=== PATIENT | male | born 1935 | race Caucasian/White ===

== ENCOUNTER 2017-01-03 16:02 | Inpatient (IN) | payer OTHER, MEDICAID ==
[~2017-01-03] VITALS: Ht 182.9 cm; Wt 67.1 kg
[2017-01-03] MEDS: FLUCONAZOLE 100 mg/ NS 50 ML IV SCH (02:00)
--- NOTE | 2017-01-03 16:02 | NUR ---
Patient to ER bed 4 to gown for evaluation. Side rails up. Report given to WAYNE BARFIELD.
--- NOTE | 2017-01-03 16:05 | NUR ---
Pt brought in BLS transport in stable condition. Pt sent here by Dr. Salomon from [facility]. Pt here for +N/V/D x3 days. Pt is currently on Levaquin IV from facility for elevated WBC. Pt present hot skin and fever. Pt present w/ productive cough and was placed on nasal canula @ 2L in route. Placed pt on quality assurance monitor. No acute distress noted at this time. Will initate sepsis protocol, Dr. Edouard is aware.
[2017-01-03 16:07] VITALS: BP 100/50; PULSE 146; RESP 20; TEMP 101.1; O2SAT 98
--- NOTE | 2017-01-03 16:30 | NUR ---
ER at bedside examining patient.
[2017-01-03] MEDS ORDERED: ACETAMINOPHEN 325 MG SUPP.RECT RC ONE (16:45)
[2017-01-03] MEDS ORDERED: ACETAMINOPHEN 650 MG SUPP.RECT RC ONE (16:45)
[2017-01-03] MEDS ORDERED: NS 1000 ML BAG IV ONE (16:45)
[2017-01-03 16:58] LABS: BLOOD GAS PH 7.436 (7.350-7.450)
[2017-01-03 16:59] LABS: BLOOD GAS BASE EXCESS -3.7 mmol/L (-3.0-3.0); BLOOD GAS COHb% 0.6 % (0.5-1.5); BLOOD GAS HHB 5.7 % (0.0-6.0); BLOOD O2Hb% 93.3 % (94.0-97.0)
[2017-01-03 17:05] LABS: BASOPHILS % (AUTO) 0.2 % (0.0-2.0); EOSINOPHILS % (AUTO) 0.1 % (0.0-4.0); HEMATOCRIT 31.8 % (36-54); HEMOGLOBIN 10.7 g/dL (14.0-18.0); LYMPHOCYTES # (AUTO) 0.3 K/uL (1.0-5.5); LYMPHOCYTES % (AUTO) 1.6 % (20.5-51.5); MEAN CORPUSCULAR HEMOGLOBIN 30 pg (27-31); MEAN CORPUSCULAR HGB CONC 34 % (32-36); MEAN CORPUSCULAR VOLUME 88 fL (79.0-98.0); MONOCYTES % (AUTO) 6.2 % (1.7-9.3); NEUTROPHILS # (AUTO) 15.5 K/uL (1.8-7.7); NEUTROPHILS % (AUTO) 91.9 % (40.0-70.0); PLATELET COUNT (AUTO) 379 K/uL (130-430); RED BLOOD CELL COUNT(AUTO) 3.63 MIL/uL (4.2-6.2); RED CELL DISTRIBUTION WIDTH 14.7 % (9.0-15.0); WHITE BLOOD COUNT (AUTO) 16.8 K/uL (4.8-10.8)
[2017-01-03 17:18] LABS: PROTHROMBIN TIME 10.8 SECS (9.5-12.5)
[2017-01-03 17:19] LABS: ANION GAP 8 (5-15); CALCIUM 9.1 mg/dL (8.4-11.0); CHLORIDE 106 mmol/L (98-107); CREATININE 1.41 mg/dL (0.55-1.30); GLUCOSE 174 mg/dL (70-99); POTASSIUM 4.5 mmol/L (3.5-5.1); SODIUM SERUM 140 mmol/L (136-145); UREA NITROGEN, BLOOD 29 mg/dL (8-21)
[2017-01-03 17:21] LABS: BILIRUBIN,URINE NEGATIVE (NEGATIVE); BLOOD, URINE 3+ (NEGATIVE); CLARITY/URINE CLOUDY (CLEAR); COLOR,URINE YELLOW (YELLOW); GLUCOSE,URINE NEGATIVE (NEGATIVE); KETONES,URINE NEGATIVE (NEGATIVE); LEUKOCYTE ESTERASE ,URINE 3+ (NEGATIVE); NITRITE, URINE NEGATIVE (NEGATIVE); PH,URINE 5.5 (5.0-8.0); PROTEIN URINE 2+ (NEGATIVE); UROBILINOGEN,URINE 0.2 (0.2-1.0)
[2017-01-03] MEDS ORDERED: LEVOFLOXACIN 500 MG/D5W 100 ML IV ONE (17:30)
[2017-01-03] MEDS ORDERED: PIPERACILLIN/TAZO 3.375 GM in NS 50 ML IV ONE (17:30)
[2017-01-03 17:35] LABS: ALANINE AMINOTRANSFERASE 26 U/L (12-78); ALBUMIN 2.7 g/dL (3.4-4.8); ASPARTATE AMINOTRANSFERASE 28 U/L (10-37); FREE T4 (FREE THYROXINE) 1.1 ng/dL (0.6-1.6); THYROID STIMULATING HORMONE 0.62 uIu/mL (0.34-4.82); TOTAL BILIRUBIN 0.4 mg/dL (0.0-1.0)
[2017-01-03 17:42] LABS: BACTERIA,URINE MODERATE /HPF (None Seen); WBC,URINE >100 /HPF (0-3)
[2017-01-03 17:43] LABS: MUCUS,URINE None Seen /LPF (None Seen); YEAST,URINE Moderate /HPF (None Seen)
[2017-01-03 18:03] LABS: ERYTHROCYTE SEDIMENTATION RATE 90 MM/HR (0-15)
[2017-01-03] MEDS ORDERED: PIPERACILLIN/TAZOBACTAM 3.375 GM/VIAL (ZOSYN) IV ONE (18:04)
[2017-01-03 18:05] LABS: C-REACTIVE PROTEIN QUANT 26.5 mg/dL (0-0.5)
[2017-01-03] MEDS ORDERED: TAMS-11 PO (18:20)
[2017-01-03] MEDS ORDERED: QUIN40TA PO (18:20)
[2017-01-03] MEDS ORDERED: LIP20 PO (18:20)
[2017-01-03] MEDS ORDERED: METF1000 PO (18:20)
[2017-01-03] MEDS ORDERED: ASPI81TA2 PO (18:20)
[2017-01-03] MEDS ORDERED: INSU100V9 SUBCUT (18:20)
[2017-01-03] MEDS ORDERED: DONE10TA44 PO (18:20)
[2017-01-03] MEDS ORDERED: MEMA10TA12 PO (18:20)
--- NOTE | 2017-01-03 19:20 | NUR ---
Patient will be admitted to care of [facility]. Admitted to Tele unit. Will go to room 118-A. Belongings list completed. Summary report printed. Report given to WAYNE Cody.
--- NOTE | 2017-01-03 19:36 | NUR ---
ADMISSION: The patient, JOSE ROBERTO LOZANO, 81 y/o, M admitted by ALEJANDRO VALDEZ DO, was given written information regarding hospital policies, unit procedures and contact persons. Valuables were checked and pt was oriented to his room and surrounding. Pt was informed he is in Room 118-a and his RN will be Jonna.
[2017-01-03 19:38] VITALS: BP 113/69; PULSE 108; RESP 19; TEMP 99.5; O2SAT 95
[2017-01-03 20:00] VITALS: BP 113/69; PULSE 108; RESP 18; TEMP 99.5
--- NOTE | 2017-01-03 20:00 | NUR ---
2000 BEGINNING RETORT FURNACE OPERATOR NOTE Patient is in bed resting. He appears somewhat scared, confused and disoriented. The nurse oriented him to the room and the surroundings, but he still seemed very confused. He was non-verbal at the time, no response to any questions the nurse asked. He had a very small BM, no diarrhea. The nurse started prescribed IVF. No pain or distress noted.
[2017-01-03] MEDS ORDERED: FLU VACC QS 2016-17(36MOS+)/PF 0.5 ML/SYR SYRINGE I.M. PRN (20:15)
[2017-01-03] MEDS ORDERED: MAGNESIUM SULFATE 50 ML IV PRN (20:45)
[2017-01-03] MEDS ORDERED: DOCUSATE SODIUM 100 MG CAPSULE PO PRN (20:45)
[2017-01-03] MEDS ORDERED: POTASSIUM CHLORIDE 10 MEQ TAB.PRT.SR PO PRN (20:45)
[2017-01-03] MEDS ORDERED: ACETAMINOPHEN 325 MG TABLET PO PRN (20:45)
[2017-01-03] MEDS ORDERED: MORPHINE 2 MG/ML INJ. SYRINGE IVP PRN (20:45)
[2017-01-03] MEDS ORDERED: LORazepam 2 MG/ML VIAL IVP PRN (20:45)
[2017-01-03] MEDS ORDERED: DEXTROSE 50% JECT 50 ML DISP.SYRIN IVP PRN (20:45)
[2017-01-03] MEDS ORDERED: ONDANSETRON HCL 4 MG/2 ML VIAL IVP PRN (20:45)
[2017-01-03] MEDS: NACL 0.9% 1,000 ML IV SCH (21:00)
--- NOTE | 2017-01-03 22:00 | NUR ---
2200 ROUNDS Patient in bed napping. The nurse and the DRUG ABUSE WORKER cleaned him. The nurse noted that the patient developed somewhat wet productive cough and on several occasions he expelled thick yellow-greenish secretions. Previously on assessment the nurse found some expiratory wheezes in his upper left lobe. The nurse also noted that the patient has real difficulties swallowing his medications. The nurse will convey that to the day shift, so that the patient can receive swallow evaluation. No S/S of distress noted.Fall precautions in place.
[2017-01-03] MEDS: INSULIN ASPART 100 UNITS/ML, 10 ML VIAL (NovoLOG) SUBCUT PRN (22:51)
[2017-01-03] MEDS: HEPARIN SODIUM,PORCINE 5000 UNITS/ML VIAL SUBCUT SCH (22:51)
[2017-01-03] MEDS: ATORVASTATIN 20 MG TABLET PO SCH (22:55)
[2017-01-03] MEDS: LACTOBACILLUS RHAMNOSUS GG 1 CAP CAPSULE PO SCH (22:55)
[2017-01-03] MEDS: MEMANTINE HCL 5 MG TABLET PO SCH (22:56)
[2017-01-03] MEDS: DONEPEZIL HCL 5 MG TABLET (ARICEPT) PO SCH (22:56)
--- NOTE | 2017-01-04 00:10 | NUR ---
0010 NOTE Patient in bed sleeping.No S/S of pain or distress noted. Fall precautions in place.
[2017-01-04] MEDS ORDERED: FLUCONAZOLE 200 mg/ NS 100 ML IV ONE (01:54)
--- NOTE | 2017-01-04 02:30 | NUR ---
0230 ROUNDS Patient in bed sleeping. No pain or any distress noted. Fall precautions in place.
[2017-01-04 03:47] VITALS: BP 115/70; PULSE 111; RESP 18; TEMP 98.9
--- NOTE | 2017-01-04 05:23 | NUR ---
0500 NOTE Patient in bed sleeping. No pain, cough or distress noted. Fall precautions in place.
[2017-01-04 06:37] LABS: BASOPHILS % (AUTO) 0.1 % (0.0-2.0); EOSINOPHILS % (AUTO) 0.1 % (0.0-4.0); HEMATOCRIT 25.1 % (36-54); HEMOGLOBIN 8.2 g/dL (14.0-18.0); LYMPHOCYTES # (AUTO) 0.7 K/uL (1.0-5.5); LYMPHOCYTES % (AUTO) 6.5 % (20.5-51.5); MEAN CORPUSCULAR HEMOGLOBIN 29 pg (27-31); MEAN CORPUSCULAR HGB CONC 33 % (32-36); MEAN CORPUSCULAR VOLUME 89 fL (79.0-98.0); MONOCYTES % (AUTO) 9.1 % (1.7-9.3); NEUTROPHILS # (AUTO) 9.6 K/uL (1.8-7.7); NEUTROPHILS % (AUTO) 84.2 % (40.0-70.0); PLATELET COUNT (AUTO) 283 K/uL (130-430); RED BLOOD CELL COUNT(AUTO) 2.81 MIL/uL (4.2-6.2); RED CELL DISTRIBUTION WIDTH 14.7 % (9.0-15.0); WHITE BLOOD COUNT (AUTO) 11.3 K/uL (4.8-10.8)
[2017-01-04 06:58] LABS: ANION GAP 8 (5-15); CALCIUM 7.7 mg/dL (8.4-11.0); CHLORIDE 113 mmol/L (98-107); CREATININE 1.06 mg/dL (0.55-1.30); GLUCOSE 140 mg/dL (70-99); POTASSIUM 3.8 mmol/L (3.5-5.1); SODIUM SERUM 144 mmol/L (136-145); UREA NITROGEN, BLOOD 30 mg/dL (8-21)
--- NOTE | 2017-01-04 07:30 | NUR ---
AM ROUNDS RECEIVED PT UP IN BED. AWAKE, ALERT, ORIENTED TO NAME ONLY. BREATHING IS EVEN AND UNLABORED ON RA. F/C IS DRAINING CHASE CLOUDY URINE TO GRAVITY. FULL ASSESSMENT COMPLETED. VSS. RD OF CALL LIGHT NOTED. ENCOURAGED PT TO CALL ME WITH ANY NEEDS
--- NOTE | 2017-01-04 07:30 | NUR ---
AM ROUNDS RECEIVED PT UP IN BED. AWAKE, ALERT, ORIENTED X 2. BREATHING IS EVEN AND UNLABORED ON RA. NO ACUTE DISTRESS. FULL ASSESSMENT COMPLETED. VSS. POC DISCUSSED. PT VERBALIZED UNDERSTANDING. RD OF CALL LIGHT NOTED. ENCOURAGED PT TO CALL ME WITH ANY NEEDS.
--- NOTE | 2017-01-04 07:42 | NUR ---
CLOSING NOTE Patient in bed sleeping. Breathing regular, no S/S of pain or any distress noted. IVF running, fall precautions in place. Patient's needs met throughout the shift. Report given to the day shift nurse about the possible dysphagia observed by the shift engineer nurse as well as a suggestion to crush the medications and give them in apple sauce to avoid possible choking. The nurse also informed the day shift nurse to let the primary MD know about signing the DNR papers in front of the chart.
--- NOTE | 2017-01-04 08:31 | NUR ---
Nutrition Note Dylan scale of 11 noted. Pt admitted with UTI. Diet: CCHO-60 gm, Pureed BMI: 23.2 kg/m2 RD to follow up per nutrition care standards.
[2017-01-04] MEDS: MEMANTINE HCL 5 MG TABLET PO SCH ×2 (09:23→20:19)
[2017-01-04] MEDS: LACTOBACILLUS RHAMNOSUS GG 1 CAP CAPSULE PO SCH ×2 (09:23→20:25)
[2017-01-04] MEDS: LISINOPRIL 20 MG TABLET PO SCH (09:24)
[2017-01-04] MEDS: ASPIRIN 81 MG TAB.CHEW PO SCH (09:24)
[2017-01-04] MEDS: TAMSULOSIN HCL 0.4 MG CAP PO SCH (09:24)
[2017-01-04] MEDS: HEPARIN SODIUM,PORCINE 5000 UNITS/ML VIAL SUBCUT SCH ×2 (09:26→20:21)
--- NOTE | 2017-01-04 09:30 | NUR ---
RN ROUNDS ADMIN AM MEDS, CRUSHED IN APPLE SAUCE. PT DOM WELL. BREAKFAST TRAY REMOVED. COMFORT MEASURES PROVIDED. CALL LIGHT PLACED WITHIN PTS REACH.
[2017-01-04] MEDS: NACL 0.9% 1,000 ML IV SCH ×2 (10:30→22:31)
[2017-01-04 11:07] VITALS: Ht 182.9 cm; Wt 67.1 kg
[2017-01-04 11:54] VITALS: BP 111/53; PULSE 95; RESP 16; TEMP 98.2; O2SAT 97
--- NOTE | 2017-01-04 12:00 | NUR ---
RN ROUNDS SON AT BEDSIDE. POC DISCUSSED. EDUCATED PT AND SON ON UTI, IVATB, AND IMPROTANCE OF HYDRATION. PT ADMITS NOT DRINKING WATER. SON VERBALIZED UNDERSTANDING
--- NOTE | 2017-01-04 15:00 | NUR ---
RN ROUNDS PT RESTING IN BED. EYES CLOSED. CHEST RISING AND FALLING. NO NONVERBAL INDICATION OF PAIN NOTED. CALL LIGHT IS WITHIN REACH.
[2017-01-04 17:15] VITALS: BP 120/66; PULSE 87; RESP 16; TEMP 98.8; O2SAT 96
[2017-01-04] MEDS: LEVOFLOXACIN 500 MG/D5W 100 ML IV SCH (18:13)
--- NOTE | 2017-01-04 18:22 | NUR ---
CLOSING NOTE PT RESTING IN BED. ALL NEEDS MET. HOURLY ROUNDS OBSERVED THROUGHOUT SHIFT. WILL ENDORSE REPORT TO NOC SHIFT NURSE.
[2017-01-04] MEDS: DONEPEZIL HCL 5 MG TABLET (ARICEPT) PO SCH (20:18)
[2017-01-04] MEDS: ATORVASTATIN 20 MG TABLET PO SCH (20:19)
[2017-01-04] MEDS: MUPIROCIN 2% TOPICAL OINTMENT 22 GM TP SCH (20:19)
[2017-01-04] MEDS: INSULIN ASPART 100 UNITS/ML, 10 ML VIAL (NovoLOG) SUBCUT PRN (20:24)
--- NOTE | 2017-01-04 20:34 | NUR ---
NOTES; SCHEDULED PO MEDICATION CRUSHED AND ADMINISTERED WITH APPLE SAUCE. PT TOLERATED MEDS WELL. BLOOD SUGAR FOUND TO BE 203. INSULIN ADMINISTERED SUBCUTANEOUSLY PER SLIDING SCALE ORDER.
[2017-01-04] MEDS: FLUCONAZOLE 100 mg/ NS 50 ML IV SCH (22:08)
--- NOTE | 2017-01-04 22:30 | NUR ---
NOTES; REPOSITIONED FOR COMFORT. DENIES ANY PAIN AT THIS TIME. SAFETY MEASURES IN PROGRESS.
[2017-01-04 23:52] VITALS: BP 136/70; PULSE 70; RESP 20; TEMP 98.5; O2SAT 94
--- NOTE | 2017-01-05 | NUR ---
NOTES; APPEARED TO BE SLEEPING, EYES CLOSED, REPOSITIONED FOR COMFORT. EASILY AROUSED.
--- NOTE | 2017-01-05 01:45 | NUR ---
NOTES; APPEARED TO BE SLEEPING, EYES CLOSED. RESPIRATION EVEN AND UNLABORED. NO ACUTE DISTRESS NOTED. SAFETY MEASURES IN PROGRESS.
--- NOTE | 2017-01-05 04:00 | NUR ---
NOTES; APPEARED TO BE SLEEPING, EYES CLOSED. RESPIRATION EVEN AND UNLABORED. NO ACUTE DISTRESS NOTED. SAFETY MEASURES IN PROGRESS.
[2017-01-05 04:13] VITALS: BP 135/76; PULSE 93; RESP 20; TEMP 98.4; O2SAT 99
--- NOTE | 2017-01-05 05:46 | NUR ---
NOTES; BLOOD SUGAR FOUND TO BE 118. NO INSULIN NEEDED PER SLIDING SCALE ORDER. DENIES ANY PAIN AT THIS TIME. SAFETY MEASURES IN PROGRESS.
[2017-01-05 06:35] LABS: ANION GAP 5 (5-15); CALCIUM 8.1 mg/dL (8.4-11.0); CHLORIDE 113 mmol/L (98-107); GLUCOSE 127 mg/dL (70-99); POTASSIUM 3.7 mmol/L (3.5-5.1); SODIUM SERUM 144 mmol/L (136-145); UREA NITROGEN, BLOOD 26 mg/dL (8-21)
--- NOTE | 2017-01-05 06:35 | NUR ---
NOTES; RESTING QUIETLY, EASILY AROUSED; NO ACUTE DISTRESS NOTED. VITAL SIGNS STABLE, AFEBRILE. DENIES ANY PAIN AT THIS TIME. ALL NEEDS ATTENDED. SAFETY MEASURES MAINTAINED.
[2017-01-05 06:54] LABS: BASOPHILS % (AUTO) 0.3 % (0.0-2.0); EOSINOPHILS # (AUTO) 0.1 K/uL (0.0-0.4); EOSINOPHILS % (AUTO) 1.3 % (0.0-4.0); HEMATOCRIT 23.2 % (36-54); HEMOGLOBIN 7.5 g/dL (14.0-18.0); LYMPHOCYTES # (AUTO) 1.1 K/uL (1.0-5.5); MEAN CORPUSCULAR HEMOGLOBIN 28 pg (27-31); MEAN CORPUSCULAR HGB CONC 32 % (32-36); MEAN CORPUSCULAR VOLUME 88 fL (79.0-98.0); MONOCYTES # (AUTO) 0.9 K/uL (0.0-1.0); NEUTROPHILS # (AUTO) 8.1 K/uL (1.8-7.7); NEUTROPHILS % (AUTO) 78.4 % (40.0-70.0); PLATELET COUNT (AUTO) 303 K/uL (130-430); RED BLOOD CELL COUNT(AUTO) 2.64 MIL/uL (4.2-6.2); RED CELL DISTRIBUTION WIDTH 15.1 % (9.0-15.0); WHITE BLOOD COUNT (AUTO) 10.3 K/uL (4.8-10.8)
[2017-01-05 07:59] VITALS: BP 142/64; PULSE 69; RESP 18; TEMP 98.1; O2SAT 98
--- NOTE | 2017-01-05 08:00 | NUR ---
NOTE PT SITTING UP IN BED AND ASSISTED WITH HIS BREAKFAST TRAY BY NURSING STUDENTS AT THIS TIME. NO SOB/RESP DISTRESS OR PAIN/DISCOMFORT NOTED AT THIS TIME. MERRITT CATHETER INTACT AND DRAINING WELL. TELE UNIT INTACT AND ATTACHED AT THIS TIME. CALL LIGHT WITHIN REACH.
[2017-01-05] MEDS: LACTOBACILLUS RHAMNOSUS GG 1 CAP CAPSULE PO SCH ×2 (08:40→20:31)
[2017-01-05] MEDS: TAMSULOSIN HCL 0.4 MG CAP PO SCH (08:40)
[2017-01-05] MEDS: MEMANTINE HCL 5 MG TABLET PO SCH ×2 (08:40→20:31)
[2017-01-05] MEDS: ASPIRIN 81 MG TAB.CHEW PO SCH (08:40)
[2017-01-05] MEDS: LISINOPRIL 20 MG TABLET PO SCH (08:41)
[2017-01-05] MEDS: HEPARIN SODIUM,PORCINE 5000 UNITS/ML VIAL SUBCUT SCH ×2 (08:44→20:35)
[2017-01-05] MEDS: MUPIROCIN 2% TOPICAL OINTMENT 22 GM TP SCH ×2 (08:52→20:40)
[2017-01-05] MEDS: INSULIN ASPART 100 UNITS/ML, 10 ML VIAL (NovoLOG) SUBCUT PRN ×2 (11:01→16:13)
--- NOTE | 2017-01-05 12:00 | NUR ---
NOTE PT CALM IN BED AND DENIES ANY NEEDS AT THIS TIME. LUNCH TRAY WILL BE IN SHORTLY AND ASSISTANCE WILL BE GIVEN TO PT TO EAT HIS MEAL AT THIS TIME. CALL LIGHT WITHIN REACH.
[2017-01-05 12:28] VITALS: BP 152/73; PULSE 64; RESP 16; TEMP 98.4; O2SAT 100
--- NOTE | 2017-01-05 12:36 | NUR ---
Discharge Planning Called and left a message with patient's son Hoang Christine [phone], asking him to return my call. Call made to son in order to complete DC plan assessment. Patient has Alzheimer's and resides at [facility].
--- NOTE | 2017-01-05 15:00 | NUR ---
NOTE PT RESTING IN BED AT THIS TIME. NO NEEDS NOTED. PT MAINTAINED WITH SAFETY PRECAUTIONS ALL SHIFT. IVF'S INFUSING WELL THROUGH RIGHT HAND IV SITE. NO SOB/RESP DISTRESS OR PAIN/DISCOMFORT NOTED. PT CHECKED ON Q1' AND PRN ALL SHIFT. PT MAINTAINED WITH SAFETY PRECAUTIONS ALL SHIFT. MERRITT CATHETER INTACT AND DRAINING WELL. NO NEEDS NOTED. CALL LIGHT WITHIN REACH.
[2017-01-05] MEDS: NACL 0.9% 1,000 ML IV SCH ×2 (16:29→22:06)
[2017-01-05 17:08] VITALS: BP 148/48; PULSE 74; RESP 16; TEMP 98.1; O2SAT 99
[2017-01-05] MEDS: LEVOFLOXACIN 500 MG/D5W 100 ML IV SCH (17:44)
--- NOTE | 2017-01-05 18:30 | NUR ---
NOTE PT SITTING UP IN BED EATING HIS DINNER. NO NEEDS NOTED. CALL LIGHT WITHIN REACH. PT MAINTAINED WITH SAFETY PRECAUTIONS ALL SHIFT. CALL LIGHT WITHIN REACH.
[2017-01-05 19:30] VITALS: BP 146/68; PULSE 70; RESP 18; TEMP 97.3; O2SAT 100
--- NOTE | 2017-01-05 19:30 | NUR ---
notes received the pt from the day nurse.pt awake but confused to time and place reoriented to time and place.iv intact to rt forearm and lt hand,no redness or swelling noted.monitor in place and shows SR.bed alarm is on.side rails are up pt in isolation for mrsa of the nares.pt denies pain .watching tv .call light within reach safety measures in progress.continue to monitor.
[2017-01-05] MEDS: ATORVASTATIN 20 MG TABLET PO SCH (20:31)
[2017-01-05] MEDS: DONEPEZIL HCL 5 MG TABLET (ARICEPT) PO SCH (20:31)
[2017-01-05] MEDS: ZOLPIDEM TARTRATE 5 MG TABLET PO PRN (20:32)
--- NOTE | 2017-01-05 21:26 | NUR ---
notes pt watching tv with no complaints accucheck was 147,no insulin needed per s/s.call light within reach .continue to monitor.
[2017-01-05] MEDS: FLUCONAZOLE 100 mg/ NS 50 ML IV SCH (22:02)
--- NOTE | 2017-01-05 23:29 | NUR ---
notes pt sleeping,call light within reach.continue to monitor.
[2017-01-06] VITALS (7 sets, daily range): BP systolic 119–159; BP diastolic 62–80; PULSE 66–82; RESP 16–19; TEMP 97.8–99; O2SAT 98–100
--- NOTE | 2017-01-06 01:28 | NUR ---
notes pt sleeping,bed alarm is on will continue to monitor.
--- NOTE | 2017-01-06 03:38 | NUR ---
notes pt remains asleep,continue to monitor.
--- NOTE | 2017-01-06 06:22 | NUR ---
closing notes pt resting with eyes closed,awaken for accucheck that was 145,no insulin needed per s/s.will endorse the care of the pt to the day nurse.
[2017-01-06 07:14] LABS: BASOPHILS % (AUTO) 0.6 % (0.0-2.0); EOSINOPHILS # (AUTO) 0.2 K/uL (0.0-0.4); EOSINOPHILS % (AUTO) 2.6 % (0.0-4.0); HEMATOCRIT 24.5 % (36-54); HEMOGLOBIN 7.9 g/dL (14.0-18.0); LYMPHOCYTES # (AUTO) 1.1 K/uL (1.0-5.5); LYMPHOCYTES % (AUTO) 14.4 % (20.5-51.5); MEAN CORPUSCULAR HEMOGLOBIN 29 pg (27-31); MEAN CORPUSCULAR HGB CONC 32 % (32-36); MEAN CORPUSCULAR VOLUME 89 fL (79.0-98.0); MONOCYTES # (AUTO) 0.5 K/uL (0.0-1.0); MONOCYTES % (AUTO) 6.1 % (1.7-9.3); NEUTROPHILS # (AUTO) 5.9 K/uL (1.8-7.7); NEUTROPHILS % (AUTO) 76.3 % (40.0-70.0); PLATELET COUNT (AUTO) 299 K/uL (130-430); RED BLOOD CELL COUNT(AUTO) 2.76 MIL/uL (4.2-6.2); RED CELL DISTRIBUTION WIDTH 14.7 % (9.0-15.0); WHITE BLOOD COUNT (AUTO) 7.7 K/uL (4.8-10.8)
[2017-01-06 07:40] LABS: ANION GAP 7 (5-15); CALCIUM 8.1 mg/dL (8.4-11.0); CHLORIDE 111 mmol/L (98-107); CREATININE 0.86 mg/dL (0.55-1.30); GLUCOSE 155 mg/dL (70-99); POTASSIUM 3.6 mmol/L (3.5-5.1); SODIUM SERUM 142 mmol/L (136-145); UREA NITROGEN, BLOOD 18 mg/dL (8-21)
--- NOTE | 2017-01-06 08:00 | NUR ---
AM NOTES: RECEIVED PT AWAKE, ALERT, ORIENTED TO HIMSELF, FOLLOWS COMMANDS, NS 90 ML/HR RUNNING VIA LT HAND, ON NSR, NO RESP DISTRESS NOTED, TO CONTINUE TO MONITOR CLOSELY.
[2017-01-06] MEDS: ASPIRIN 81 MG TAB.CHEW PO SCH (08:32)
[2017-01-06] MEDS: MUPIROCIN 2% TOPICAL OINTMENT 22 GM TP SCH ×2 (08:32→21:46)
[2017-01-06] MEDS: TAMSULOSIN HCL 0.4 MG CAP PO SCH (08:32)
[2017-01-06] MEDS: LACTOBACILLUS RHAMNOSUS GG 1 CAP CAPSULE PO SCH ×2 (08:32→21:44)
[2017-01-06] MEDS: LISINOPRIL 20 MG TABLET PO SCH (08:33)
[2017-01-06] MEDS: MEMANTINE HCL 5 MG TABLET PO SCH ×2 (08:33→21:44)
[2017-01-06] MEDS: HEPARIN SODIUM,PORCINE 5000 UNITS/ML VIAL SUBCUT SCH ×2 (08:34→21:42)
--- NOTE | 2017-01-06 10:00 | NUR ---
NURSE: DR VALDEZ WAS HERE IN THE MORNING.
[2017-01-06] MEDS: INSULIN ASPART 100 UNITS/ML, 10 ML VIAL (NovoLOG) SUBCUT PRN ×2 (11:18→17:15)
--- NOTE | 2017-01-06 12:00 | NUR ---
NURSE: PT ON JAYASHREE, PERICO CHEST PAIN, V/S STABLE, BLOOD SUGAR-164, 2 UNITS REGULAR INSULIN GIVEN.
--- NOTE | 2017-01-06 16:00 | NUR ---
NURSE: PT REMAINS STABLE, NO RESP DISTRESS NOTED, WEAK PRODUCTIVE COUGH NOTED, DENIES CHEST PAIN, IV FLUID CONTINUED.
[2017-01-06] MEDS: LEVOFLOXACIN 500 MG/D5W 100 ML IV SCH (17:12)
[2017-01-06] MEDS: NACL 0.9% 1,000 ML IV SCH (17:13)
--- NOTE | 2017-01-06 19:40 | NUR ---
Initial Notes Pt is A/Ox2, forgetful. Pt denies any pain at this time. Unable to fully discuss poc with pt because of cognitive limitation, no family available at bedside at this time to discuss poc. VSS. IV intact. Pt is bedrest, and educated paper control clerk light and encouraged to call. Breathing is even and unlabored, with mild productive cough noted. Safety precautions in place, side rails up x3, with bed in lowest, locked position, bed alarm on at all times. Call light in hand. Will continue to monitor.
[2017-01-06] MEDS: FLUCONAZOLE 100 mg/ NS 50 ML IV SCH (21:40)
[2017-01-06] MEDS: ATORVASTATIN 20 MG TABLET PO SCH (21:44)
[2017-01-06] MEDS: ZOLPIDEM TARTRATE 5 MG TABLET PO PRN (21:45)
[2017-01-06] MEDS: DONEPEZIL HCL 5 MG TABLET (ARICEPT) PO SCH (21:45)
--- NOTE | 2017-01-06 21:46 | NUR ---
Rounds/Scheduled medications All scheduled medications discussed with pt at this time. Pt requested sleep aid, ambien 10mg given as ordered for sleep aid. No acute distress or sob noted. All needs met at this time. Call light in hand. Will continue to monitor.
--- NOTE | 2017-01-07 00:30 | NUR ---
Rounds Pt is sleeping comfortably in bed at this time. Breathing is even and unlabored. VSS. IV intact. All needs met. Call light in hand. Will continue to monitor.
--- NOTE | 2017-01-07 02:30 | NUR ---
Rounds Pt is sleeping comfortably in bed at this time. No acute distress or sob noted. IV intact. Call light in reach. Will continue to monitor.
[2017-01-07 03:55] VITALS: BP 133/72; PULSE 78; RESP 18; TEMP 98.5; O2SAT 98
--- NOTE | 2017-01-07 04:30 | NUR ---
Rounds Pt is resting comfortably at this time. No acute distress or sob noted. Safety measures in place. Call light in hand. Will continue to monitor.
[2017-01-07] MEDS: NACL 0.9% 1,000 ML IV SCH ×2 (06:52→09:10)
[2017-01-07 07:07] LABS: BASOPHILS % (AUTO) 0.4 % (0.0-2.0); EOSINOPHILS # (AUTO) 0.2 K/uL (0.0-0.4); EOSINOPHILS % (AUTO) 2.8 % (0.0-4.0); HEMATOCRIT 23.8 % (36-54); HEMOGLOBIN 7.9 g/dL (14.0-18.0); LYMPHOCYTES # (AUTO) 1.5 K/uL (1.0-5.5); LYMPHOCYTES % (AUTO) 17.9 % (20.5-51.5); MEAN CORPUSCULAR HEMOGLOBIN 29 pg (27-31); MEAN CORPUSCULAR HGB CONC 33 % (32-36); MEAN CORPUSCULAR VOLUME 88 fL (79.0-98.0); MONOCYTES # (AUTO) 0.9 K/uL (0.0-1.0); MONOCYTES % (AUTO) 10.8 % (1.7-9.3); NEUTROPHILS # (AUTO) 5.5 K/uL (1.8-7.7); NEUTROPHILS % (AUTO) 68.1 % (40.0-70.0); PLATELET COUNT (AUTO) 400 K/uL (130-430); RED BLOOD CELL COUNT(AUTO) 2.71 MIL/uL (4.2-6.2); WHITE BLOOD COUNT (AUTO) 8.1 K/uL (4.8-10.8)
[2017-01-07 07:21] LABS: ANION GAP 7 (5-15); CHLORIDE 108 mmol/L (98-107); GLUCOSE 127 mg/dL (70-99); POTASSIUM 3.2 mmol/L (3.5-5.1); SODIUM SERUM 140 mmol/L (136-145); UREA NITROGEN, BLOOD 14 mg/dL (8-21)
--- NOTE | 2017-01-07 07:43 | NUR ---
Closing Notes Pt is awake, denies any pain or sob at this time. VSS. IV intact. Safety measures maintained. All needs met throughout shift. Care has been endorsed to AM Nurse Samantha. Call light in hand.
[2017-01-07 08:00] VITALS: BP 156/74; PULSE 74; RESP 18; TEMP 98.3; O2SAT 98
--- NOTE | 2017-01-07 08:00 | NUR ---
NOTE PT SITTING UP IN BED BEING ASSISTED WITH EATING HIS BREAKFAST AT THIS TIME. NO SOB/RESP DISTRESS OR PAIN/DISCOMFORT. IVF'S INFUSING WELL THROUGH LEFT HAND IV SITE. PT CONFUSED BUT COOPERATIVE IN TAKING HIS PO MEDICATIONS AND FOOD WITHOUT DIFFICULTY. CALL LIGHT WITHIN REACH.
[2017-01-07] MEDS: LACTOBACILLUS RHAMNOSUS GG 1 CAP CAPSULE PO SCH (09:21)
[2017-01-07] MEDS: MUPIROCIN 2% TOPICAL OINTMENT 22 GM TP SCH (09:21)
[2017-01-07] MEDS: ASPIRIN 81 MG TAB.CHEW PO SCH (09:22)
[2017-01-07] MEDS: TAMSULOSIN HCL 0.4 MG CAP PO SCH (09:22)
[2017-01-07] MEDS: MEMANTINE HCL 5 MG TABLET PO SCH (09:22)
[2017-01-07] MEDS: LISINOPRIL 20 MG TABLET PO SCH (09:22)
[2017-01-07] MEDS: HEPARIN SODIUM,PORCINE 5000 UNITS/ML VIAL SUBCUT SCH (09:23)
--- NOTE | 2017-01-07 10:38 | NUR ---
DC PLANNING: RECEIVED A DC ORDER FROM DR. VALDEZ. CALLED /FAXED TO [facility] AT [facility] TEL# [phone]; FAX#[phone]. TO F/U. Addendum: 01/07/17 at 1139 by Nandini Farrell RN ACEPTED BACK AT [facility] ROOM 19 A, PLS GIVE REPORT TO RAJAN A[employer]P MECHANIC TEL# [phone]. ARRANGED TRANSPORTATION -STRAIGHTENING PRESS OPERATOR HELPER AT 1500.
--- NOTE | 2017-01-07 12:00 | NUR ---
NOTE PT CHECKED ON Q1' FOR NEEDS AND CARE. PT STABLE AT THIS TIME. DR VALDEZ WAS ON THE FLOOR AND ASSESSMENT WAS COMPLETED AT 10AM. QUESTIONS/CONCERNS WERE ANSWERED AT THIS TIME. CALL LIGHT WITHIN REACH.
[2017-01-07] MEDS: INSULIN ASPART 100 UNITS/ML, 10 ML VIAL (NovoLOG) SUBCUT PRN (12:49)
[2017-01-07 12:54] VITALS: BP 151/85; PULSE 68; RESP 16; TEMP 97.7; O2SAT 96
--- NOTE | 2017-01-07 13:20 | NUR ---
NOTE PT WAS INSTRUCTED THAT HE WILL BE TRANSFERRED BACK TO [facility] AT 1500. PT HAS POOR APPETITE FOR LUNCH AT THIS TIME. REFUSED ANY FOOD EVEN ASSISTANCE. CALL LIGHT WITHIN REACH. NO SOB/RESP DISTRESS OR PAIN/DISCOMFORT NOTED AT THIS TIME.
[2017-01-07 14:09] VITALS: BP 150/75; PULSE 70; RESP 18; TEMP 98.5; O2SAT 98
--- NOTE | 2017-01-07 15:20 | NUR ---
NOTE PT WAS DRESSED IN ORANGE GOWN AND SHEET. MERRITT CATHETER WAS DC'D AT 1400. PT HAS ADULT BRIEF ON FOR TRANSPORT TO SNF. IV IN RIGHT HAND WAS DC'D, SITE HAS NO SWELLING/REDNESS/BLEEDING OR TENDERNESS AT SITE. PT HAD NO BELONGINGS. GENTLE RIDE EMT ON THE FLOOR AT THIS TIME. REPORT GIVEN AND DISCHARGE PACKET GIVEN TO GIVE TO [facility] FOR CONTINUATION OF CARE AT THIS TIME. PT OFF THE FLOOR VIA GURNEY. NO SOB/RESP DISTRESS OR PAIN/DISCOMFORT NOTED. VSS. PT STABLE.
== END 2017-01-07 15:15 | DRG 871 ==
LOC: SED 16:02 → STU 18:55 → SMU 01-06 11:20
PROVIDERS: ADMIT General Practice; ATTEND General Practice
DX: A41.9 Sepsis, unspecified organism (principal); G93.41 Metabolic encephalopathy; N17.0 Acute kidney failure with tubular necrosis; E44.0 Moderate protein-calorie malnutrition; M86.9 Osteomyelitis, unspecified; B37.49 Other urogenital candidiasis; E86.0 Dehydration; E11.21 Type 2 diabetes mellitus with diabetic nephropathy; E11.65 Type 2 diabetes mellitus with hyperglycemia; G30.9 Alzheimer's disease, unspecified; F02.80 Dementia in other diseases classified elsewhere, unspecified severity, without behavioral disturbance, psychotic disturbance, mood disturbance, and anxiety; I99.8 Other disorder of circulatory system; I10 Essential (primary) hypertension; D63.8 Anemia in other chronic diseases classified elsewhere; E11.69 Type 2 diabetes mellitus with other specified complication; E78.5 Hyperlipidemia, unspecified; E87.6 Hypokalemia; M81.0 Age-related osteoporosis without current pathological fracture; N40.0 Benign prostatic hyperplasia without lower urinary tract symptoms; B96.89 Other specified bacterial agents as the cause of diseases classified elsewhere; Z86.73 Personal history of transient ischemic attack (TIA), and cerebral infarction without residual deficits; Z68.20 Body mass index [BMI] 20.0-20.9, adult; Z79.4 Long term (current) use of insulin; Z79.82 Long term (current) use of aspirin; Z22.322 Carrier or suspected carrier of Methicillin resistant Staphylococcus aureus; Z79.899 Other long term (current) drug therapy
CPT/HCPCS: 36415; 36600; 71010; 80048; 80053; 81000-TC; 82803-TC; 82962; 83036; 83605; 83735-TC; 83874; 84439; 84443-TC; 84484; 85025; 85610-TC; 85651-TC; 85730-TC; 86140; 86710; 86886; 86900; 86901; 87040-TC; 87081; 87086; 93005; 96361; 96365; 96367; 99285; J1450; J1644; J1815; J1956; J2543; J7030; J7040